=== PATIENT | female | born 1980 | race Caucasian/White ===

== ENCOUNTER → 2016-06-23 | Outpatient (CLI) | payer BC ==
[~2016-06-23] MED LIST: FAM-PREN FORTE1 CAP PO; MOTRIN 600600 MG/TAB PO; NORCO 325 MG-7.1 TAB PO; PERCOCET 325 MG1 TA2 PO; PROCARDIA XL 6060 MG PO; ULTRAM 50MG TAB50 MG PO; VYVANSE60 MG PO; XARELTO15 MG PO
== END ==
LOC: COL.RAD 09:40
DX: M25.511 Pain in right shoulder (principal)
CPT/HCPCS: J3301; Q9967

== ENCOUNTER 2016-08-30 08:00 | Emergency (ER) | payer BC ==
[~2016-08-30] VITALS: Ht 162.6 cm; Wt 100.0 kg
[~2016-08-30 08:00] MED LIST changes: -NORCO 325 MG-7.1 TAB PO; -ULTRAM 50MG TAB50 MG PO; -VYVANSE60 MG PO; -XARELTO15 MG PO
[2016-08-30 08:08] VITALS: BP 134/100; TEMP 98.2
[2016-08-30] MEDS ORDERED: VYVANSE60 MG PO (08:12)
[2016-08-30] MEDS ORDERED: ULTRAM 50MG TAB50 MG PO (08:12)
[2016-08-30] MEDS ORDERED: NORCO 325 MG-7.1 TAB PO (08:13)
[2016-08-30] MEDS ORDERED: XARELTO15 MG PO (09:05)
[2016-08-30 09:21] LABS: BASO # 0.1 (0.0-0.2); BASO % 0.4 % (0.0-2.0); EOS # 0.3 (0.0-0.7); EOS % 1.3 % (0-4.0); GRAN # 16.3 (1.4-6.5); GRAN % 83.5 % (42.2-75.2); HEMATOCRIT 44.9 % (37.0-47.0); HEMOGLOBIN 15.4 g/dl (12.5-16.0); LYMPH # 2.2 (1.2-3.4); LYMPH % 11.4 % (20.0-51.0); MEAN CELL VOLUME 86 fl (80.0-100.0); MEAN CORPUSCULAR HEMOGLOBIN 30 pg (27.0-31.0); MEAN CORPUSCULAR HGB CONC 34 g/dl (33.0-37.0); MEAN PLATELET VOLUME 9.9 fl (7.4-10.4); MONO # 0.6 (0.1-0.6); MONO % 2.9 % (1.7-9.3); PLATELET COUNT 341 K/mm3 (130-400); REDCELL DISTRIBUTION WIDTH-CV 13.2 % (11.5-14.5); WHITE BLOOD COUNT 19.5 K/mm3 (4.8-10.8)
[2016-08-30 09:26] LABS: INR 1.2 (0.8-3.0)
[2016-08-30 09:28] LABS: PARTIAL THROMBOPLASTIN TIME 33.2 SECONDS (26.0-37.0)
[2016-08-30 10:04] VITALS: PULSE 82
== END 2016-08-30 10:04 | disposition home or self-care (01) ==
LOC: COL.ER 08:00
PROVIDERS: Physician Assistant
DX: I82.4Z2 Acute embolism and thrombosis of unspecified deep veins of left distal lower extremity (principal); F17.210 Nicotine dependence, cigarettes, uncomplicated; Z98.890 Other specified postprocedural states; Z79.01 Long term (current) use of anticoagulants

== ENCOUNTER → 2021-09-09 | Outpatient (CLI) | payer BC ==
[~2021-09-09] MED LIST changes: +NORCO 325 MG-7.1 TAB PO; +ULTRAM 50MG TAB50 MG PO; +VYVANSE60 MG PO; +XARELTO15 MG PO
== END ==
LOC: COL.RAD 12:54
DX: R10.11 Right upper quadrant pain (principal); Z98.0 Intestinal bypass and anastomosis status
CPT/HCPCS: Q9967

== ENCOUNTER → 2021-09-26 | Outpatient (CLI) | payer BC | LOC: MC.RAD 08:37 | DX: N64.52 Nipple discharge (principal) ==